=== PATIENT | male | born 1975 | race Caucasian/White ===

== ENCOUNTER 2018-10-10 10:07 | Emergency (ER) | payer MEDICAID, OTHER ==
[2018-10-10] MEDS: IBUPROFEN 200 MG TAB PO (11:35)
== END 2018-10-10 12:18 | disposition home or self-care (01) ==
LOC: FTE 10:07
DX: S63.602A Unspecified sprain of left thumb, initial encounter (principal); X58.XXXA Exposure to other specified factors, initial encounter; Y92.9 Unspecified place or not applicable
CPT/HCPCS: 73140; 99283-25